=== PATIENT | female | born 1985 | race Caucasian/White ===

== ENCOUNTER 2018-12-12 05:05 | Emergency (ER) | payer SELFPAY ==
[~2018-12-12] VITALS: Ht 162.6 cm; Wt 90.9 kg
[~2018-12-12 05:05] MED LIST: BENZ-6 PO; D-ME473S2 PO; DOCU-144 PO; FER325 PO
[2018-12-12 05:07] VITALS: Ht 162.6 cm; Wt 90.9 kg
[2018-12-12 08:07] VITALS: BP 121/70; PULSE 91; RESP 20
--- NOTE | 2018-12-12 10:27 | ERD ---
ER Documentation Chief Complaint Chief Complaint COUGH ON/OFF X2WKS HPI 33-year-old female presenting with a cough x2-week the past and states feels very similar. She has a cough that waxes and wanes between productive and dry. No fevers. She has no runny nose no sore throat and no vomiting. Denies abdominal pain or chest pain. Patient also has a history of anemia and has had for blood transfusions in the past. Patient has heavy periods. Patient also has hypothyroidism due to thyroidectomy and only has one adrenal gland. Surgical history thyroidectomy tonsillectomy and adrenal gland removal. Social history denies ROS All systems reviewed and are negative except as per history of present illness. Medications Home Meds Active Scripts Ferrous Sulfate* (Ferrous Sulfate*) 325 Mg Tabec, 325 MG PO DAILY, #30 TAB Prov:ALAN MICHEL PA-C 12/12/18 Docusate Sodium* (Colace*) 100 Mg Capsule, 100 MG PO TID, #30 CAP Prov:ALAN MICHEL PA-C 12/12/18 Benzonatate* (Tessalon Perle*) 100 Mg Capsule, 100 MG PO Q8H PRN for COUGH, #30 CAP Prov:ALAN MICHEL PA-C 12/12/18 Dextromethorphan Hb-Promethazine Hcl* (Promethazine DM* Syrup) 473 Ml Syrup, 5 ML PO Q6 PRN for COUGH, #100 ML Prov:ALAN MICHEL PA-C 12/12/18 Allergies Allergies: Coded Allergies: ciprofloxacin (Verified Allergy, Unknown, hives, 12/12/18) PMhx/Soc History of Surgery: Yes (Right adrenal gland & thyroid removal, tonsillectomy, cervical cerclage) Anesthesia Reaction: No Hx Neurological Disorder: No Hx Respiratory Disorders: No Hx Cardiac Disorders: No Hx Psychiatric Problems: No Hx Miscellaneous Medical Probl: Yes (Anemia, Thyroid Medullary Cancer) Hx Alcohol Use: Yes (Occasional) Hx Substance Use: Yes (Marijuana) Hx Tobacco Use: Yes (last one a month ago) Smoking Status: Current some day smoker FmHx Family History: No diabetes, No coronary disease, No other Physical Exam Vitals Vital Signs Date Temp Pulse Resp B/P (MAP) Pulse Ox O2 O2 Flow FiO2 Time Delivery Rate 12/12/18 98.0 91 20 121/70 99 Room Air 08:07 (87) 12/12/18 97.6 104 20 129/60 99 05:07 (83) Physical Exam GENERAL: The patient is well-appearing, well-nourished, in no acute distress HEENT: Atraumatic. Conjunctivae are pink. Pupils equal, round, and reactive to light. There is no scleral icterus. Tympanic membranes clear bilaterally. Oropharynx clear. No nystagmus or photophobia. NECK: C-spine is soft and supple. There is no meningismus. There is no cervical lymphadenopathy. . CHEST: Clear to auscultation bilaterally. There are no rales, wheezes or rhonchi. HEART: Regular rate and rhythm SKIN: There is no apparent rash or petechiae. The skin is warm and dry. Result Diagram: 12/12/18 0639 12/12/18 0639 Results 24 hrs Laboratory Tests Test 12/12/18 06:39 12/12/18 06:41 White Blood Count 7.8 10^3/ul Red Blood Count 3.21 10^6/ul Hemoglobin 7.8 g/dl Hematocrit 27.8 % Mean Corpuscular Volume 86.6 fl Mean Corpuscular Hemoglobin 24.3 pg Mean Corpuscular Hemoglobin Concent 28.1 g/dl Red Cell Distribution Width 19.9 % Platelet Count 400 10^3/UL Mean Platelet Volume 9.3 fl Immature Granulocytes % 1.200 % Neutrophils % 54.7 % Lymphocytes % 27.9 % Monocytes % 6.3 % Eosinophils % 8.1 % Basophils % 1.8 % Nucleated Red Blood Cells % 0.0 /100WBC Immature Granulocytes # 0.090 10^3/ul Neutrophils # 4.3 10^3/ul Lymphocytes # 2.2 10^3/ul Monocytes # 0.5 10^3/ul Eosinophils # 0.6 10^3/ul Basophils # 0.1 10^3/ul Nucleated Red Blood Cells # 0.0 10^3/ul Sodium Level 141 mmol/L Potassium Level 4.1 mmol/L Chloride Level 102 mmol/L Carbon Dioxide Level 32 mmol/L Anion Gap 7 Blood Urea Nitrogen 19 mg/dl Creatinine 1.39 mg/dl Est Glomerular Filtrat Rate mL/min 44 mL/min Glucose Level 79 mg/dl Calcium Level 8.7 mg/dl Total Bilirubin 0.3 mg/dl Direct Bilirubin 0.00 mg/dl Indirect Bilirubin 0.3 mg/dl Aspartate Amino Transf (AST/SGOT) 48 IU/L Alanine Aminotransferase (ALT/SGPT) 29 IU/L Alkaline Phosphatase 56 IU/L Total Protein 7.4 g/dl Albumin 4.2 g/dl Globulin 3.20 g/dl Albumin/Globulin Ratio 1.31 POC Beta HCG, Qualitative NEGATIVE Bedside Urine pH (LAB) 6.5 Bedside Urine Protein (LAB) Trace Bedside Urine Glucose (UA) Negative Bedside Urine Ketones (LAB) Negative Bedside Urine Blood Negative Bedside Urine Nitrite (LAB) Negative Bedside Urine Leukocyte Esterase (L 1+ Procedures/MDM DIAGNOSTIC IMAGING REPORT Patient: ROHIT ESPINOZA : 1985 Age: 33 Sex: F MR #: [id number] DOS: 12/12/18 0623 Ordering MD: SHANTE MICHEL PA-C Location: [facility] Room/Bed: PROCEDURE: XR Chest. CLINICAL INDICATION: Cough TECHNIQUE: AP portable semi upright chest was obtained COMPARISON: None. FINDINGS: Cardiomediastinal silhouette is normal. Pulmonary vasculature is normal. Lungs and costophrenic angles are clear. Bones soft tissues are unremarkable. IMPRESSION: No evidence of acute cardiopulmonary disease. MDM: 33-year-old female presenting with cough. Patient's chest x-ray is within normal limits vitals are stable and exam is non-concerning. Patient does have anemia noted on CBC however does not require transfusion at this time and p atient is not having vaginal bleeding time not worried about high hemodynamic instability. Patient is told symptoms change or worsen to return immediately to the ER. Patient is told to follow-up with primary care within 1 to 2 days for close evaluation. Patient is discharged with strict ER precautions. All questions answered at discharge Departure Diagnosis: Primary Impression: Anemia Additional Impression: Cough Condition: Stable Patient Instructions: Anemia, Cough, Chronic, Uncertain Cause, (Adult) Referrals: COMMUNITY CLINICS YOU HAVE RECEIVED A MEDICAL SCREENING EXAM AND THE RESULTS INDICATE THAT YOU DO NOT HAVE A CONDITION THAT REQUIRES URGENT TREATMENT IN THE EMERGENCY DEPARTMENT. FURTHER EVALUATION AND TREATMENT OF YOUR CONDITION CAN WAIT UNTIL YOU ARE SEEN IN YOUR DOCTORS OFFICE WITHIN THE NEXT 1-2 DAYS. IT IS YOUR RESPONSIBILITY TO MAKE AN APPOINTMENT FOR FOLOW-UP CARE. IF YOU HAVE A PRIMARY DOCTOR --you should call your primary doctor and schedule an appointment IF YOU DO NOT HAVE A PRIMARY DOCTOR YOU CAN CALL OUR PHYSICIAN REFERRAL HOTLINE AT IF YOU CAN NOT AFFORD TO SEE A PHYSICIAN YOU CAN CHOSE FROM THE FOLLOWING [facility] [address] [facility] [address] [facility] [address] [facility] [address] [facility]. [facility] [address] [facility]. [facility] [address] Additional Instructions: FOLLOW UP WITH YOUR PRIMARY CARE PHYSICIAN TOMORROW.Return to this facility if you are not improving as expected. ALAN MICHEL PA-C Dec 12, 2018 10:27
== END 2018-12-12 07:30 | disposition home or self-care (01) ==
LOC: FTE 05:05
DX: D64.9 Anemia, unspecified (principal); F17.210 Nicotine dependence, cigarettes, uncomplicated
CPT/HCPCS: 71045; 80053; 81003; 81025; 85025